=== PATIENT | male | born 1965 | race Caucasian/White ===

== ENCOUNTER 2018-05-12 13:10 | Inpatient (IN) | payer OTHER, BC ==
[2018-05-12] VITALS (7 sets, daily range): BP systolic 139–183; BP diastolic 39–86
[~2018-05-12] VITALS: Ht 170.2 cm; Wt 73.0 kg
--- NOTE | ~2018-05-12 | EKG ---
[address] [address] ELECTROCARDIOGRAM REPORT Name: GREGOR TAM Room #: 246-P ADM IN M.R.#: [id number] Admission: 05/12/18 Attend Phys: David Mccoy MD Discharge: Date of : 61 Report #: [id number] THIS REPORT FOR: //name// [facility] ED Test Date: 2018-05-12 Test Time: 13:17:52 Pat Name: GREGOR TAM Department: Room: 246 Gender: M Corporate Planning Manager: LASHON : 1965 Requested By: Dave Bagley Order Number: [id number] MD: Feng Hernández Measurements Intervals [place] Rate: 67 P: 56 MT: 182 QRS: -14 QRSD: 94 T: 47 QT: 398 QTc: 420 Interpretive Statements Sinus rhythm Probable left atrial enlargement No previous ECG available for comparison Electronically Signed On 05-12-2018 16:40:19 CDT by Feng Hernández [email or web address] <ELECTRONICALLY SIGNED> By: Feng Hernández MD, [facility] 05/12/18 1640 1317 1317 Feng Hernández MD, FACC /EPI
--- NOTE | ~2018-05-12 | HC ---
[facility] [place] [address] CONSULTATION Name: GREGOR TAM Room #: 461-P [facility] IN M.R.#: [id number] Admission: 05/12/18 Attend Phys: David Mccoy MD Discharge: 05/13/18 Date of : 61 Report #: [id number] THIS REPORT FOR: //name// CC: FAM unknown David Mccoy REASON FOR CONSULTATION: End-stage renal disease. REASON FOR PRESENTATION: Shortness of breath. HISTORY OF PRESENT ILLNESS: Those were obtained from the medical chart. The patient is currently asleep and not willing to wake up to talk. He is a dialysis patient. It is really not clear where does he go to have his dialysis. There is a note that he is seeing somebody at [facility] now. However, he told my dialysis nurses that he goes to [place]. He reported to the Emergency Room that he has been having some shortness of breath. His last dialysis treatment was on . As I have stated, I am not able to obtain any of the details from the patient. He has no family members. PAST MEDICAL HISTORY: 1. End-stage renal disease, unknown underlying kidney disease. 2. Appendectomy. 3. Liver biopsy. 4. Hypertension. 5. Hyperlipidemia, REVIEW OF SYSTEMS: Completely unobtainable. The patient is asleep and not willing to wake up. MEDICATIONS: 1. Flomax. 2. Carvedilol. 3. Amlodipine. 4. Gabapentin. 5. Alprazolam. 6. Omeprazole. FAMILY HISTORY: Unobtainable given the patient's mental status. ALLERGIES: MORPHINE and CODEINE. PAST SURGICAL HISTORY: Left-sided AV fistula. SOCIAL HISTORY: Unobtainable given the patient's mental status. PHYSICAL EXAMINATION: GENERAL: He is asleep, not willing to wake up. [facility] [address] [place] [address] CONSULTATION Name: TAMGREGOR Room #: 461-P [facility] IN .R.#: [id number] Admission: 05/12/18 Attend Phys: David Mccoy MD Discharge: 05/13/18 Date of : 61 Report #: [id number] VITAL SIGNS: Pulse rate is 75, blood pressure is 183/84. HEAD AND NECK: No jugular venous distention. Shipman of old tunneled catheter on the right side. CHEST: Decreased air entry bilaterally. CARDIOVASCULAR: S4 present. No rub detected. ABDOMEN: Soft, nontender. LOWER EXTREMITIES: +2 edema. LABORATORY DATA: Reviewed. White blood cell count 13.4, sodium 116, potassium 7.5, BUN 55, creatinine 10.9. Chest x-ray reviewed. ASSESSMENT, IMPRESSION AND PLAN: 1. End-stage renal disease. 2. Hyperkalemia with acute EKG changes. 3. Hyponatremia. 4. Hypertension. 5. Noncompliance. 6. We will arrange for the patient to have urgent hemodialysis today. He will need another treatment tomorrow. 7. Resume his outpatient medications. 8. When he wakes up and is willing to talk, we need to discuss with him his medical issues, address his dialysis needs with his outpatient dialysis unit once we figure out which unit he goes to. <ELECTRONICALLY SIGNED> By: Connie Zaragoza MD 05/17/18 0557 1714 0414 Connie Zaragoza MD /nt
[2018-05-12 13:47] LABS: HEMATOCRIT 28.5 % (42.0-52.0); HEMOGLOBIN 9.9 gm/dL (14.0-18.0); MCH 32.1 pg (26.0-34.0); MCHC 34.9 g/dL (28.0-37.0); MCV 92.1 fL (80.0-100.0); PLATELET COUNT 252 thou/uL (150-400); RBC 3.09 mil/uL (4.50-6.00); RDW 15.8 % (10.5-14.5); WBC 13.4 thou/uL (4.0-11.0)
[2018-05-12 14:15] LABS: ABSOLUTE NEUTROPHILS 10.7 thou/uL (1.4-8.2)
[2018-05-12 14:16] LABS: ANISOCYTOSIS 1+
[2018-05-12 14:40] LABS: ANION GAP 11 mmol/L (7-16); BUN 55 mg/dL (7-18); CALCIUM 8.2 mg/dL (8.5-10.1); CHLORIDE 81 mmol/L (98-107); CO2 24 mmol/L (21-32); CREATININE 10.9 mg/dL (0.7-1.3); GLUCOSE 110 mg/dL (74-106)
[2018-05-12 14:42] LABS: POTASSIUM 7.2 mmol/L (3.5-5.1); SODIUM 116 mmol/L (136-145)
[2018-05-12 14:50] LABS: TROPONIN-I <0.06 ng/mL (<0.06)
[2018-05-12 15:34] LABS: URINE BILIRUBIN NEGATIVE (Negative); URINE BLOOD 1+ (Negative); URINE CLARITY CLEAR; URINE COLOR YELLOW; URINE GLUCOSE-RANDOM* TRACE (Negative); URINE KETONES NEGATIVE (Negative); URINE LEUKOCYTES-REFLEX NEGATIVE (Negative); URINE NITRITE-REFLEX NEGATIVE (Negative); URINE PROTEIN (DIPSTICK) 2+ (Negative); URINE UROBILINOGEN 0.2 E.U./dl (0.2-1.0)
[2018-05-12] MEDS ORDERED: ALPRAZOLAM 0.50.5 M1 PO (15:46)
[2018-05-12] MEDS ORDERED: NORVASC5 MG PO (15:46)
[2018-05-12] MEDS ORDERED: PROAIR HFA8.5 GM INH (15:46)
[2018-05-12] MEDS ORDERED: CHILDREN'S ASPI81 M1 PO (15:47)
[2018-05-12 15:48] LABS: SQUAMOUS 0-3 Few /LPF (0-3)
[2018-05-12 15:49] LABS: BACTERIA-REFLEX 1-9 Few /HPF (None Seen); CASTS None Seen /LPF (None Seen); CRYSTALS None Seen /LPF (None Seen); URINE RBC 0-2 Rare /HPF (0-2); URINE WBC-REFLEX None Seen /HPF (0-5)
[2018-05-12] MEDS ORDERED: ATORVASTATIN CA40 MG PO (15:53)
[2018-05-12] MEDS ORDERED: CALCIUM ACETAT667 MG PO (15:53)
[2018-05-12] MEDS ORDERED: CARVEDILOL25 MG PO (15:54)
[2018-05-12] MEDS ORDERED: CARDURA4 MG PO (15:54)
[2018-05-12] MEDS ORDERED: FLEXERIL PO (15:54)
[2018-05-12] MEDS ORDERED: LEXAPRO 10 MG T10 M1 PO (15:55)
[2018-05-12] MEDS ORDERED: ADVAIR 250-501 EACH INH (15:56)
[2018-05-12] MEDS ORDERED: COZAAR 25 MG TA25 M1 PO (15:56)
[2018-05-12] MEDS ORDERED: NEURONTIN 300300 M1 PO (15:56)
[2018-05-12] MEDS ORDERED: SINGULAIR 10 MG10 M1 PO (15:57)
[2018-05-12] MEDS ORDERED: OMEPRAZOLE40 MG PO (15:57)
[2018-05-12] MEDS ORDERED: OXYBUTYNIN 5 MG5 M2 PO (15:57)
[2018-05-12] MEDS ORDERED: SODIUM BICARBO650 M3 PO (15:58)
[2018-05-12] MEDS ORDERED: FLOMAX0.4 MG PO (15:58)
[2018-05-12] MEDS ORDERED: TRIAMCINOLONE A80 G2 TOP (15:58)
[2018-05-12] MEDS ORDERED: VIRT-CAPS SOFTGE1 MG PO (15:59)
[2018-05-13] VITALS (12 sets, daily range): BP systolic 131–173; BP diastolic 37–86
[2018-05-13 05:43] LABS: HEMATOCRIT 26.3 % (42.0-52.0); HEMOGLOBIN 9.3 gm/dL (14.0-18.0); MCH 32.2 pg (26.0-34.0); MCHC 35.2 g/dL (28.0-37.0); MCV 91.3 fL (80.0-100.0); RBC 2.88 mil/uL (4.50-6.00); RDW 15.3 % (10.5-14.5); WBC 7.5 thou/uL (4.0-11.0)
[2018-05-13 05:56] LABS: CALCIUM 8.4 mg/dL (8.5-10.1); CREATININE 6.1 mg/dL (0.7-1.3); PHOSPHORUS 4.6 mg/dL (2.5-4.9); POTASSIUM 4.7 mmol/L (3.5-5.1)
[2018-05-13] MEDS ORDERED: NORCO 7.5-3251 EACH PO (09:44)
[2018-05-14 07:11] LABS: HEPATITIS B SURFACE AG Negative (Negative)
== END 2018-05-13 19:00 | disposition home or self-care (01) | DRG 640 ==
LOC: ER 13:10 → EROBS 14:47 → ICU 14:47 → 4W 05-13 10:37
PROVIDERS: Emergency Medicine; Hospitalist
PROC: 5A1D70Z Performance of Urinary Filtration, Intermittent, Less than 6 Hours Per Day (ICD-10-PCS; principal; 2018-05-12)
DX: E87.5 Hyperkalemia (principal); N18.6 End stage renal disease; I12.0 Hypertensive chronic kidney disease with stage 5 chronic kidney disease or end stage renal disease; E87.1 Hypo-osmolality and hyponatremia; Z79.82 Long term (current) use of aspirin; E78.5 Hyperlipidemia, unspecified; E78.00 Pure hypercholesterolemia, unspecified; N40.0 Benign prostatic hyperplasia without lower urinary tract symptoms; F17.200 Nicotine dependence, unspecified, uncomplicated; J45.909 Unspecified asthma, uncomplicated; Z90.49 Acquired absence of other specified parts of digestive tract; Z79.899 Other long term (current) drug therapy; Z99.2 Dependence on renal dialysis; Z88.5 Allergy status to narcotic agent; Z91.19 Patient's noncompliance with other medical treatment and regimen
CPT/HCPCS: 10045; 10078; 32100

== ENCOUNTER 2021-04-27 15:08 | Inpatient (IN) | payer OTHER ==
[~2021-04-27] VITALS: Ht 167.6 cm; Wt 68.9 kg
--- NOTE | ~2021-04-27 | EMS ---
[facility] [address] [place] [address] EMS Patient Care Report Name: GREGOR TAM Room #: PRE MAkilahRAkilah#: [id number] Admission: Attend Phys: Discharge: Date of : 61 Report #: [id number] THIS REPORT FOR: //name// Report Transmitted: 04/27/2021 15:39 EMS Care Summary [place], [place]/[facility] Incident [id number] @ 04/27/2021 14:45 Incident Location [address] [place] [address] Patient GREGOR TAM Male, 55 Years 1965 Patient Address [address] [place] [address] Patient History Dialysis, Patient Allergies Morphine, Patient Medications Unknown, Chief Complaint Unconscious Disposition Transported No Lights/[place] Dispatch Reason Unconscious/Fainting Transported To [facility] Narrative M36 dispatched on an unconscious. M36 arrived to find PT supine on ground with snoring respirations. Bystanders on scene stated PT said "I don't feel good," then slumped over in the cleaning. PT chief complaint AMS/unconscious. PT airway adjusted to open airway. No gross trauma or bleeding noted. PT found to have [facility] [address] [place] [address] EMS Patient Care Report Name: GREGOR TAM Room #: PRE ER .Shahnaz.#: [id number] Admission: Attend Phys: Discharge: Date of : 61 Report #: [id number] dialysis shunt in upper left arm. PT picked up by fire and placed on stretcher. PT secured with seatbelts. PT placed on oxygen, IV access obtained and cardiac monitoring in place during transport. PT found to initially by hypoxic, hypotensive with a bradycardic rhythm on the monitor. Cardiac patched placed on PT to prepare to pace PT. PT received fluids. PT heart rate in normal ranges before arrival at ER. PT vitals monitored during transport. PT report given. PT moved to hospital bed via four person sheet lift. PT care and belongings transferred to ER staff at [facility] without incident. M36 placed back in service. Initial Vitals @14:57P: 51,SpO2: 94, @14:55P: 55,SpO2: 72, @14:59P: 82,R: 12,BP: 86/38,Pain: 0/10,GCS: 8,Glucose: 120,CO: 5,SpO2: 96,Revised Trauma: 9, @14:53P: 84,R: 10,BP: 76/42,Pain: 0/10,GCS: 8,SpO2: 72,Revised Trauma: 9, @15:02P: 78,R: 12,BP: 82/42,Pain: 0/10,GCS: 12,CO: 0,SpO2: 98,Revised Trauma: 10, Assessments @15:00MENTAL:Unresponsive,SKIN:Jaundiced,Pale,Diaphoresis,HEENT:LUNG SOUNDS:ABDOMEN:PELVIS//GI:Incontinence,EXTREMITIES:Left Arm: Abnormal Pulse,PULSE:Radial: 1+ Thready,NEURO: Impression Altered Mental Status Procedures @14:53ALS AssessmentResponse: UnchangedSucceeded@14:55Saline Lock 2cc (20 ga) Site: Antecubital-RightResponse: UnchangedFailed@14:58Normal Saline (.9% NaCl) 110cc (20 ga) Site: Antecubital-RightResponse: ImprovedSucceeded@14:553-Lead ECGResponse: UnchangedSucceeded@14:5712-Lead ECGResponse: UnchangedSucceeded@14:56Oxygen FlowRate: 6 Device: Nasal Cannula (NC) Response: ImprovedSucceeded Timeline 14:43,Call Received 14:43,Dispatch Notified 14:45,Dispatched 14:46,En Route 14:50,On Scene 14:52,At Patient 14:53,ALS Assessment,Response: UnchangedSucceeded, 14:53,BP: 76/42 M,PULSE: 84,RR: 10 R,SPO2: 72 Ox,ETCO2: ,BG: ,PAIN: 0,GCS: 8, 14:55,3-Lead ECG,Response: UnchangedSucceeded, [facility] [address] [place] [address] EMS Patient Care Report Name: GREGOR TAM Room #: PRE M.R.#: [id number] Admission: Attend Phys: Discharge: Date of : 61 Report #: [id number] 14:55,BP: / M,PULSE: 55,RR: R,SPO2: 72 Ox,ETCO2: ,BG: ,PAIN: ,GCS: , 14:55,Saline Lock 2cc 20 ga Site: Antecubital-Right,Response: UnchangedFailed, 14:56,Oxygen FlowRate: 6 Device: Nasal Cannula (NC) Response: ImprovedSucceeded, 14:57,12-Lead ECG,Response: UnchangedSucceeded, 14:57,BP: / M,PULSE: 51,RR: R,SPO2: 94 Ox,ETCO2: ,BG: ,PAIN: ,GCS: , 14:58,Normal Saline (.9% NaCl) 110cc 20 ga Site: Antecubital-Right,Response: ImprovedSucceeded, 14:58,Depart Scene 14:59,BP: 86/38 M,PULSE: 82,RR: 12 R,SPO2: 96 Ox,ETCO2: ,B,PAIN: 0,GCS: 8, 15:02,BP: 82/42 M,PULSE: 78,RR: 12 R,SPO2: 98 Ox,ETCO2: ,BG: ,PAIN: 0,GCS: 12, 15:08,At Destination 15:19,Call Closed Disclaimer v1.1 Copyright 2020 [employer] This EMS Care Summary contains data elements from the applicable legal record (which may be displayed differently). It is designed to provide pertinent information for the following purposes: continuity of care, clinical quality, and state data reporting. The complete legal record is available to ED staff and administrators of the receiving hospital in [employer] Patient Tracker. All data is provided "as is."
--- NOTE | ~2021-04-27 | HC ---
[facility] [place] [address] CONSULTATION Name: GREGOR TAM Room #: 215-P ADM IN M.R.#: [id number] Admission: 04/27/21 Attend Phys: Nicholas Dos Santos MD Discharge: Date of : 61 Report #: [id number] THIS REPORT FOR: cc: FAM - Family physician unknown FAM - Family physician unknown Marcelo Basilio MD ~ DATE OF SERVICE: 05/01/2021 HISTORY OF PRESENT ILLNESS: The patient is a 55-year-old white male, chronic dialysis patient who was admitted with a fainting episode. He was noted to have toxic metabolic encephalopathy, pneumonia and sepsis. Also thought to have orthostasis. He notes that he is feeling better now. He is on IV levofloxacin. He has been placed on midodrine. We are seeing him in rehabilitation medicine consultation. PAST MEDICAL HISTORY: Includes the end-stage renal disease, on hemodialysis and there is a history of some noncompliance. He has a lower extremity venous insufficiency, nonhealing ulcer, hypertension, hyperlipidemia. He did have left shoulder rotator cuff surgery in December and in January and notes he is supposed to get outpatient therapy on that left upper extremity. MEDICATIONS: Please see the full medication listing. HABITS: Current daily smoker. SOCIAL HISTORY: Lives in a house alone, 2 steps. Did not utilize adaptive devices. Has a sister that is involved. He was driving himself back and forth to dialysis. REVIEW OF SYSTEMS: Did not offer any current complaints of chest pain, shortness of breath or abdominal discomfort. PHYSICAL EXAMINATION: GENERAL: A 55-year-old white male in no obvious distress. VITAL SIGNS: Last recorded temperature 98.3, pulse 88, respirations 22, blood pressure 136/84. He is alert and oriented. HEENT: Benign. Facies are symmetric. NEUROLOGIC: He is chronically ill appearing, appears somewhat weak and cachectic. Left shoulder reveals the anterior incision, which appears to be gradually healing from his surgery. I did not range the left shoulder. He has decent strength of the left hand with services account manager. Right upper extremity has better movement with abduction, forward flexion and range of motion of the elbow, wrist and hand with strength probably a grade 4-/5. In his lower extremities, he has chronic venous stasis changes. I did not check the pressure ulcer, which he has chronically of the left distal lower extremity. Tone appeared to be intact. Strength is probably a grade 4 to 4-/5. He was noted to be furniture walking [facility] [address] [place] [address] CONSULTATION Name: GREGOR TAM Room #: 215-P [facility] IN [facility]#: [id number] Admission: 04/27/21 Attend Phys: Nicholas Dos Santos MD Discharge: Date of : 61 Report #: [id number] around his room. He has a walker in the room. Toileted on his own. Washes hands at the sink. ASSESSMENT: A 55-year-old male with the following problem list: 1. Toxic metabolic encephalopathy that appears to be improved/resolved with him returning back to his baseline level. 2. Syncopal episode without recurrence. 3. Orthostatic hypotension. 4. End-stage renal disease, on hemodialysis. 5. Chronic lower extremity venous insufficiency. 6. Peripheral arterial disease. 7. Left shoulder rotator cuff surgery within the last several months. He notes he needs some outpatient therapy for this. PLAN: The patient is set on returning back home and actually wants to go back home today. He is getting up and around the room. He is toileting on his own, washing his hands at the same as per OT. I do not see that he would meet criteria for an acute [address] [place] [address] inpatient rehabilitation stay. I would anticipate he will be able to return directly home when medically cleared. Thank you for asking us to assist in this patient's care. By: 1300 [id number] Marcelo Basilio MD /nt
[2021-04-27 15:08] VITALS: BP 72/48
[~2021-04-27 15:08] MED LIST: ADVAIR 250-501 EACH INH; ALPRAZOLAM 0.50.5 M1 PO; ATORVASTATIN CA40 MG PO; CALCIUM ACETAT667 MG PO; CARDURA4 MG PO; CARVEDILOL25 MG PO; CHILDREN'S ASPI81 M1 PO; COZAAR 25 MG TA25 M1 PO; FLEXERIL PO; FLOMAX0.4 MG PO; LEXAPRO 10 MG T10 M1 PO; NEURONTIN 300300 M1 PO; NORCO 7.5-3251 EACH PO; NORVASC5 MG PO; OMEPRAZOLE40 MG PO; OXYBUTYNIN 5 MG5 M2 PO; PROAIR HFA8.5 GM INH; SINGULAIR 10 MG10 M1 PO; SODIUM BICARBO650 M3 PO; TRIAMCINOLONE A80 G2 TOP; VIRT-CAPS SOFTGE1 MG PO
[2021-04-27 15:50] LABS: ABSOLUTE NEUTROPHILS 5.3 thou/uL (1.4-8.2); BASOPHILS 0.9 % (0.0-2.0); HEMATOCRIT 36.6 % (42.0-52.0); HEMOGLOBIN 11.3 gm/dL (14.0-18.0); LYMPHOCYTES 17.5 % (24.0-44.0); MCH 23.7 pg (26.0-34.0); MCV 76.4 fL (80.0-100.0); MONOCYTES 7.7 % (1.0-8.0); PLATELET COUNT 190 thou/uL (150-400); POLYS 72.9 % (36.0-66.0); RBC 4.79 mil/uL (4.50-6.00); RDW 18.5 % (10.5-14.5); WBC 7.3 thou/uL (4.0-11.0)
[2021-04-27 15:54] LABS: CALCIUM 7.4 mg/dL (8.5-10.1); CREATININE 3.8 mg/dL (0.7-1.3)
[2021-04-27 16:00] LABS: TOTAL BILIRUBIN 1.2 mg/dL (0.2-1.0); TOTAL PROTEIN 6.4 g/dL (6.4-8.2)
[2021-04-27 16:01] LABS: POTASSIUM 4.2 mmol/L (3.5-5.1)
[2021-04-27 21:38] LABS: ANISOCYTOSIS 2+; HYPOCHROMASIA 1+; PLATELET ESTIMATE NORMAL; POIKILOCYTOSIS 1+
[2021-04-28] VITALS (7 sets, daily range): BP systolic 85–100; BP diastolic 55–62
[2021-04-28 03:07] LABS: HEMATOCRIT 36.4 % (42.0-52.0); HEMOGLOBIN 11.1 gm/dL (14.0-18.0); MCH 23.7 pg (26.0-34.0); MCHC 30.6 g/dL (28.0-37.0); MCV 77.5 fL (80.0-100.0); RBC 4.7 mil/uL (4.50-6.00); RDW 18.7 % (10.5-14.5); WBC 8.8 thou/uL (4.0-11.0)
[2021-04-28 03:39] LABS: ALBUMIN 2.2 g/dL (3.4-5.0); CALCIUM 7.4 mg/dL (8.5-10.1); CREATININE 4.2 mg/dL (0.7-1.3); MAGNESIUM 1.5 mg/dL (1.8-2.4); TOTAL PROTEIN 6.3 g/dL (6.4-8.2)
--- NOTE | 2021-04-28 07:34 | EKG ---
[address] [place] [address] ELECTROCARDIOGRAM REPORT Name: GREGOR TAM Room #: 170-5 ADM IN M.R.#: [id number] Admission: 04/27/21 Attend Phys: Nicholas Dos Santos MD Discharge: Date of : 61 Report #: [id number] [facility] ED Test Date: 2021-04-27 Test Time: 15:22:05 Pat Name: GREGOR TAM Department: Room: 170 Gender: M Ctc Operator: nell elizalde : 1965 Requested By: Marcelo Winston Order Number: [id number] MD: Rafael Limon Measurements Intervals [place] Rate: 75 P: IA: QRS: 40 QRSD: 110 T: 28 QT: 496 QTc: 555 Interpretive Statements Atrial fibrillation RSR' in V1 or V2, right VCD or RVH Inferior infarct, old Prolonged QT interval Compared to ECG 05/12/2018 13:17:52 Right ventricular hypertrophy now present RSR' in V1 or V2 now present Myocardial infarct finding now present Prolonged QT interval now present Sinus rhythm no longer present Electronically Signed On 04-28-2021 7:34:09 CDT by Rafael Limon [email or web address] <ELECTRONICALLY SIGNED> By: Rafael Limon MD, [facility] 04/28/21 0734 1522 1522 Rafael Limon MD, [facility] /EPI
--- NOTE | 2021-04-28 16:19 | NUR ---
PT ADMITED FROM ER. ADMISSION HX AND ASSESSMENT COMPLETED. LOW BP. DR. DASILVA AWARE. PT DENIED HAVING PAIN OR DISCOMFORT. ORIENTED TO THE ROOM AND THE CALL LIGHT SYSTEM. DIALYSIS SCHEDULED FOR TOMORROW MORNING. NO CONCERNS AT THIS TIME.
--- NOTE | 2021-04-28 17:14 | NUR ---
CM attempted to visit with pt this afternoon but he is sleeping soundly.He dialyzed earlier today. New admission with a MWF outpt dialysis schedule. Clinic uncertain. Hx of non compliance. Lives in the community and is indep with gait and adl's. Unit RN to confirm outpt clinic as dc summary and instructions will need to be faxed along with his flow sheets.
[2021-04-29 04:30] VITALS: BP 108/61
[2021-04-29 08:00] VITALS: BP 107/73
--- NOTE | 2021-04-29 09:01 | NUR ---
PT SLEEPING POST DIALYSIS AWOKE AND TOOK HIS NOC MEDS, REQUESTING HOME PAIN MED RECEIVED NEW ORDER AND PT RECEIVED DOSE OF PAIN MED AT HS, ALSO REQUESTING NICOTINE PATCH ALSO STARTED THIS EVENING, MIDODRINE STARTED, TOOK OFF HEART MONITOR AND REFUSED TO LET US REPLACE IT, EDUCATED ON NEED FOR MONITOR STATED HE MIGHT BE OK TO REPLACE LATER IN AM, DIALYSIS STARTED THIS AM AND REPORT GIVEN TO NEXT SHIFT TO CON'T PPOC.
[2021-04-29 11:35] VITALS: BP 110/56
[2021-04-29 16:15] VITALS: BP 109/62
[2021-04-29] MEDS ORDERED: ASA81BEC PO (18:11)
[2021-04-29] MEDS ORDERED: AMMONIUM LACTA226 GM TOP (18:11)
[2021-04-29] MEDS ORDERED: HYDROCODON-ACE1 EAC7 PO (18:12)
[2021-04-29] MEDS ORDERED: ELIQUIS2.5 MG PO (18:12)
[2021-04-29] MEDS ORDERED: OXYCODONE HCL5 MG PO (18:13)
[2021-04-29] MEDS ORDERED: TRAZODONE HCL100 MG PO (18:14)
[2021-04-29] MEDS ORDERED: TIZANIDINE HCL2 M1 PO (18:14)
[2021-04-29] MEDS ORDERED: ONDANSETRON HCL4 M2 PO (18:14)
[2021-04-29 19:45] VITALS: BP 126/69
[2021-04-30 04:11] VITALS: BP 117/68
[2021-04-30 08:25] VITALS: BP 118/79
[2021-04-30 16:45] VITALS: BP 115/61
[2021-04-30 19:48] VITALS: BP 106/67
[2021-04-30 23:06] LABS: HEPATITIS B SURFACE AG Negative (Negative)
--- NOTE | 2021-05-01 03:16 | NUR ---
PROGRESS PT A/O X4. LUNGS DIMINISHED AND COARSE IN BASES. ON ROOM AIR, SATS IN MID 90'S. C/O PAIN TO RIGHT SHOULDER TAKING 10 MG OXYCODONE Q4HRS WITH SOME EFFECT. LEFT FOOT WOUND WITH SEROSANGUIOUS DRAINAGE. CLEANSED WITH NS, MORPHINE/SILVADENE CREAM APPLIED COVERED WITH XEROFROM GAUZE, AND WRAPPED WITH KERLIX. WOUND BED BEEFY RED NO ODOR DETECTED. AFTAB FISTULA WITH GOOD BRUIT AND TRILL. RAC HAS SL THAT FLUSHED WITHOUT DIFFICULTY . PLAN IS TO HAVE DIALYSIS THEN DISCHARGE TO HOME.
[2021-05-01 04:12] VITALS: BP 125/76
[2021-05-01 08:40] VITALS: BP 136/84
[2021-05-01 15:40] VITALS: BP 142/89
--- NOTE | 2021-05-01 19:05 | NUR ---
PT A/O X4. LUNGS DIMINISHED AND COARSE IN BASES. ON 1L of O2 after feeling SOB from moving from chair to bed. SATS IN MID 90'S. C/O PAIN TO RIGHT SHOULDER TAKING 10 MG OXYCODONE Q4HRS WITH SOME EFFECT. LEFT FOOT WOUND WITH SEROSANGUIOUS DRAINAGE. CLEANSED WITH NS, MORPHINE/SILVADENE CREAM APPLIED COVERED WITH XEROFROM GAUZE, AND WRAPPED WITH KERLIX. WOUND healing process. . AFTAB FISTULA WITH GOOD BRUIT AND TRILL. RAC HAS SL THAT FLUSHED WITHOUT DIFFICULTY . DIALYSIS done 1.5 L off. Possible DISCHARGE TO HOME tomorrow.
[2021-05-01 20:38] VITALS: BP 142/85
[2021-05-02 05:24] VITALS: BP 142/86
--- NOTE | 2021-05-02 08:26 | HC ---
[facility] [place] [address] CONSULTATION Name: GREGOR TAM Room #: 215-P ADM IN M.R.#: [id number] Admission: 04/27/21 Attend Phys: Nicholas Dos Santos MD Discharge: Date of : 61 Report #: [id number] THIS REPORT FOR: cc: FAM - Family physician unknown FAM - Family physician unknown Adolfo South MD ~ DATE OF SERVICE: 04/30/2021 REASON FOR CONSULTATION: Chronic nonhealing painful ulceration at dorsum of the left foot and the patient with end-stage renal disease and venous insufficiency. HISTORY OF PRESENT ILLNESS: The patient is a 55-year-old gentleman admitted to the Emergency Room after syncope at a restaurant on 04/27/2021. He has a history of end-stage renal disease with hemodialysis. The patient has had an ulcer on the dorsum of his left foot for over a year, which is painful. He has been under the wound care of Dr. Roldan at [facility], who he last saw a month ago. The patient complains of a painful ulcer. He has chronic venous stasis of lower extremities. PAST MEDICAL HISTORY: 1. Active everyday tobaccoism, smoker. 2. End-stage renal disease with hemodialysis. 3. Hypercholesterolemia. 4. Chronic lower extremity venous insufficiency. 5. The patient is nondiabetic. PAST SURGICAL HISTORY: Dialysis access, appendectomy, liver biopsy and umbilical hernia repair. REVIEW OF SYSTEMS: Painful ulcer, dorsum left foot. PHYSICAL EXAMINATION: GENERAL: A chronically ill-appearing elderly gentleman with dark discoloration of the skin from chronic renal failure. He is alert, pleasant, conversant. LUNGS: Respirations unlabored. ABDOMEN: Protuberant. EXTREMITIES: Lower extremity exam shows chronic venous stasis of both legs. On the dorsum of the left foot, there is a superficial ulceration measuring approximately 4 x 5 cm with a central deeper ulceration, with exposed subcutaneous tissue. This is very tender to touch, but relatively clean without purulence. Dorsalis pedis pulses are not palpable. IMPRESSION: 1. End-stage renal disease, on hemodialysis. 2. Active tobaccoism, everyday smoker. 3. Chronic venous stasis with ulceration and inflammation, left foot. [facility] [address] [place] [address] CONSULTATION Name: GREGOR TAM Room #: 215-P [facility] IN .R.#: [id number] Admission: 04/27/21 Attend Phys: Nicholas Dos Santos MD Discharge: Date of : 61 Report #: [id number] 4. Possibility of arterial insufficiency with arterial ulceration of the left foot. PLAN: Order morphine, Silvadene topical for symptomatic relief to dorsum of left foot 3 times a day. Order a lower extremity arterial ultrasound to assess arterial supply, to assess arterial sufficiency for healing. Wound Care team will follow. He has outpatient followup at Wound Care, Dr. Roldan, [facility]. <ELECTRONICALLY SIGNED> By: Adolfo South MD 05/02/21 0826 0919 1155 Adolfo South MD /nt
[2021-05-02 08:40] VITALS: BP 136/67
--- NOTE | 2021-05-02 08:44 | NUR ---
PT RESTING ON AND OFF THRU THE NOC WITH C/O R SHOULDER PAIN, PRN PAIN MEDS GIVEN CHARTED, PT STATED HE HAD AN ACCIDENT BM THIS AM, DRESSING ON LEFT FOOT CLEANED AND CHANGED TWICE, VSS, HOPES TO GO HOME TODAY, REPORT GIVEN TO NEXT SHIFT TO CON'T WITH PPOC
[2021-05-02] MEDS ORDERED: MIDODRINE HCL 55 M1 PO (10:56)
[2021-05-02] MEDS ORDERED: LEVOFLOXACIN500 MG PO (10:56)
--- NOTE | 2021-05-02 12:01 | NUR ---
PT RESTING COMFORTABLY. PT AFEBRILE, ANEURIC, BM X2, FAIR APPETITE. EUNICE-A/V FISTULA WITH POSITIVE BRUIT AND THRILL. PT TO DC HOME TODAY. HE HAS BEEN THOUROUGHLY UPDATED AND EDUCATED ON PT CONDITION AND POC, PT PROGRESSED TOWARDS POC.
[2021-05-02 14:19] VITALS: BP 85/55
--- NOTE | 2021-05-02 14:25 | NUR ---
Patient to [place] home today. Question if home health will see patient if driving himself to from dialysis. Inquired with alondra who reports they can accept for home health care. Alondra cote met with patient to disucss home health care. Patient agreeable. Orders rec. Notified patients [facility] [place] and faxed orders. Clinic [phone] fx [phone]
== END 2021-05-02 13:04 | disposition home health service (06) | DRG 871 ==
LOC: ER 15:08 → 2N 17:47 → EROBS 17:47 → 2N 04-28 08:47
PROVIDERS: Emergency Medicine; Internal Medicine Nephrology; Nurse Practitioner Family; ADMIT Internal Medicine; ATTEND Internal Medicine
PROC: 5A1D70Z Performance of Urinary Filtration, Intermittent, Less than 6 Hours Per Day (ICD-10-PCS; principal; 2021-04-29)
PROC: 5A1D70Z Performance of Urinary Filtration, Intermittent, Less than 6 Hours Per Day (ICD-10-PCS; 2021-05-01)
DX: A41.9 Sepsis, unspecified organism (principal); J18.9 Pneumonia, unspecified organism; N18.6 End stage renal disease; G92 Toxic encephalopathy; I12.0 Hypertensive chronic kidney disease with stage 5 chronic kidney disease or end stage renal disease; E78.00 Pure hypercholesterolemia, unspecified; I87.8 Other specified disorders of veins; L97.529 Non-pressure chronic ulcer of other part of left foot with unspecified severity; E78.5 Hyperlipidemia, unspecified; F17.210 Nicotine dependence, cigarettes, uncomplicated; I95.1 Orthostatic hypotension; I73.9 Peripheral vascular disease, unspecified; I87.2 Venous insufficiency (chronic) (peripheral); G90.9 Disorder of the autonomic nervous system, unspecified; Z20.822 Contact with and (suspected) exposure to COVID-19; N40.0 Benign prostatic hyperplasia without lower urinary tract symptoms; R53.81 Other malaise; Z91.19 Patient's noncompliance with other medical treatment and regimen; Z90.49 Acquired absence of other specified parts of digestive tract; Z88.6 Allergy status to analgesic agent
CPT/HCPCS: 10081; 32100